=== PATIENT | male | born 2000 | race Asian ===

== ENCOUNTER 2024-03-23 18:41 | Inpatient (IN) ==
--- NOTE | 2024-03-23 19:09 | Emergency Department Note ---
Impression & Plan Depression with suicidal ideation ED Provider Note NAME: DEVORA OLIVARES AGE: 24 SEX: M : 2000 ARRIVES VIA: Police [employer] INFORMANT: Patient, ED PROVIDER(S): Gal Urbina DO CHIEF COMPLAINT: Mental health evaluation HPI: The patient is a 24-year-old male who presented to the emergency department with police for an evaluation of mental health issues. The patient states that he was on his clinical rotations. 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 The patient made comments to people at his clinical rotation that he was very depressed and was thinking about hurting himself. The patient states he has no previous history of mental health issues. He has no previous admissions and takes no medications. He currently has no outpatient follow-up. He states that he was very depressed and this happens sometimes after he gets a bad wynne for his schooling. The patient denies having any medical issues. He has no nausea or vomiting. He denies having any chest pain or abdominal pain. At this time we did not have the opportunity to interview the police. The patient was interviewed with the mental health delegate as well. ROS: See above HPI for pertinent positives & negatives. A total of 10 systems reviewed and were otherwise negative. PAST MEDICAL HISTORY: See Below PAST SURGICAL HISTORY: See Below FAMILY HISTORY: See Below SOCIAL HISTORY: See Below HOME MEDICATIONS: See Below ALLERGIES: See Below VITALS: See Below PHYSICAL EXAMINATION: GENERAL: Patient is awake alert in no acute distress patient is resting comfortably and showing no signs of anxiety EYES: The conjunctivae are clear. The pupils are round and reactive. EARS, NOSE, MOUTH AND THROAT: The nose is without any evidence of any deformity. Mucous membranes are moist. Tongue is midline. NECK: The neck is nontender and supple. RESPIRATORY: Normal respiratory effort is noted there is no evidence of wheezing rhonchi or rales CARDIOVASCULAR: Regular rate and rhythm noted there no murmurs rubs or gallops normal S1 normal S2. GASTROINTESTINAL: The abdomen is soft. Abdomen is nontender. MUSCULOSKELETAL/EXTREMITIES: There is no evidence of gross deformity full range of motion is noted in the hips and shoulders. SKIN: There is no obvious evidence of any rash. There are no petechiae, pallor or cyanosis noted. NEUROLOGIC: Patient is awake alert and oriented x3 strength is symmetric patellar reflexes are 2+ bilaterally PSYCH: The patient makes poor eye contact. His affect is very flat. The patient continues to admit to suicidal ideation but no active plan at this time. MEDICAL DECISION MAKING: The patient is a 24-year-old male who presented to the emergency department for an evaluation of mental health issues. The patient did arrive with police but very little history is obtained from police initially. The patient does offer that he was having suicidal ideation and depression. It does not sound that he has much outpatient follow-up arranged and is not currently taking any medications. The patient was medically cleared in the emergency department. He was reevaluated by the mental health immigration case worker. He was felt to be a good candidate for inpatient management and was evaluated by the delegate from [facility] [address]. Ultimately the patient was felt to be a good candidate for management in our unit. 201 paperwork was filled out by myself. Triage Nursing notes reviewed. Prior medical records reviewed Vital Signs: reviewed and remarkable for no significant abnormalities Differential diagnosis: Mood disorder, infection, hypoglycemia, electrolyte abnormalities, cardiac sources, intracerebral event, toxicologic, trauma, neurologic, as well as other pathologies. ER treatment provided: See below Diagnostics interpreted by me: ECG: none Laboratory studies: As stated above and show below. Imaging studies: See below. Radiographic imaging was reviewed by myself Consultation(s): I discussed this case with the emergency departmental health immigration case worker. Past Med/Surg History Problem List (Updated 03/23/24 @ 23:55 by Gal Urbina DO) Depression with suicidal ideation (Acute) Social History Smoking Status: Never smoker Feels Safe at Home: Yes Gender Identity: Male Allergies Allergies Allergy/AdvReac Type Severity Reaction Status Date / Time No Known Allergies Allergy Unverified 03/23/24 20:28 Home Meds Home Medications Medication Instructions Recorded Confirmed No Known Home Medications 03/23/24 03/23/24 Results & Data (ED) Vital Signs Vital Signs - 24 hr 03/23/24 18:27 Temperature 36.6 C Temperature Source Oral Pulse Rate 74 Pulse Rhythm Regular Pulse Strength Normal Respiratory Rate 20 Respiratory Effort / Characteristics Non-Labored Spontaneous Respiratory Depth Normal Respiratory Pattern Regular Blood Pressure 135/94 Blood Pressure Mean 107 Blood Pressure Position Lying Pulse Oximetry 97 Oxygen Delivery Method Room Air Sepsis Recent Fever Within 48 Hours No Sepsis New/Unexplained Change in Mental Status No Sepsis Action Taken by Nursing No Action Required Home Medications Current Medication List: was personally reviewed by me Laboratory Data Attestation: I reviewed the patient's lab results. 03/23/24 20:00 03/23/24 20:00 Lab Results 03/23/24 03/23/24 Range/Units 18:55 20:00 WBC 8.98 (4.8-10.8) K/ul RBC 5.48 (4.70-6.10) M/uL Hgb 15.1 (14.0-18.0) g/dl Hct 46.2 (42.0-52.0) % MCV 84.3 (80.0-100.0) fL MCH 27.6 (25.0-34.0) pg MCHC 32.7 (32.0-36.0) g/dL RDW Std Deviation 41.8 (36.4-46.3) fL RDW Coeff of Eva 13.5 (11.5-14.5) % Plt Count 386 (130-400) K/uL MPV 9.4 (9.4-12.4) fL Immature Gran % (Auto) 0.4 % Neut % (Auto) 64.4 % Lymph % (Auto) 28.0 % [place] % (Auto) 5.8 % Eos % (Auto) 1.1 % Baso % (Auto) 0.3 % Neut # (Auto) 5.78 (1.40-6.50) K/uL Lymph # (Auto) 2.51 (1.20-3.40) K/uL [place] # (Auto) 0.52 (0.11-0.59) K/uL Eos # (Auto) 0.10 (0.00-0.50) K/uL Baso # (Auto) 0.03 (0.00-0.20) K/uL Immature Gran # (Auto) 0.04 (0.01-0.20) K/uL Sodium 139 (136-145) mmol/L Potassium 4.1 (3.5-5.1) mmol/L Chloride 104 (98-107) mmol/L Carbon Dioxide 28 (21-32) mmol/L Anion Gap 7 (3-11) BUN 9 (6-23) mg/dl Creatinine 0.93 (0.6-1.4) mg/dl Est Cr Clr Drug Dosing 143.5 ml/min eGFR 119.06 BUN/Creatinine Ratio 9.7 L (10-20) Glucose 88 (70-99(Fasting)) mg/dl Calcium 9.3 (8.6-10.3) mg/dl Total Bilirubin 0.3 (0.2-1.0) mg/dl AST 25 (13-39) U/L ALT 43 (7-52) U/L Alkaline Phosphatase 73 (34-104) U/L Total Protein 8.2 (6.0-8.3) gm/dl Albumin 4.7 (3.4-5.0) gm/dl Globulin 3.5 (2.5-4.0) gm/dl Albumin/Globulin Ratio 1.3 (0.9-2) TSH 0.787 (0.300-4.500) uIu/ml Urine Color Yellow Urine Appearance Clear (Clear) Urine pH 5.5 (4.5-7.5) Ur Specific [place] 1.022 (1.000-1.030) Urine Protein Negative (Negative) Urine Glucose (UA) Negative (Negative) Urine Ketones Negative (Negative) Urine Blood Negative (Negative) Urine Nitrite Negative (Negative) Urine Bilirubin Negative (Negative) Urine Urobilinogen Negative (Negative) Ur Leukocyte Esterase Negative (Negative) Salicylates < 3.0 L (3.0-30) mg/dl Urine Opiates Screen Neg (Neg) Ur Methadone, Qual Neg (Neg) Urine Fentanyl Screen Neg (Neg) Acetaminophen < 3 L (10-30) ug/ml Urine Barbiturates Neg (Neg) Ur Phencyclidine (PCP) Neg (Neg) U Amphetamin/Meth Scrn Neg (Neg) MDMA (Ecstasy) Screen Neg (Neg) U Benzodiazepines Scrn Neg (Neg) Ur Cocaine Metabolite Neg (Neg) U Marijuana (THC) Screen Neg (Neg) Ethyl Alcohol mg/dL < 10.0 (<10.0) mg/dl SARS-CoV-2, RNA, NAAT NEGATIVE (NEGATIVE) Discharge Plan Visit Data Chief Complaint: Mental Health Evaluation Stated Complaint: 201 ED Provider: Gal Urbina Discharge Problem: Depression with suicidal ideation Patient Disposition: Transfer Behavioral Health Fac Forms Stand Alone Forms: My [facility], Suicide Prevention Resources Prescriptions Prescriptions: No Action No Known Home Medications Referrals Referrals: PCP,NO [Primary Care Provider] -
[2024-03-23 19:18] LABS: Appearance Urine Clear (Clear); Bilirubin Urine Negative (Negative); Blood Urine Negative (Negative); Color Urine Yellow; Glucose Urine UA Negative (Negative); Ketones Urine Negative (Negative); Leukocyte Esterase Urine Negative (Negative); Nitrite Urine Negative (Negative); Protein Urine Negative (Negative); Specific Gravity Urine 1.022 (1.000-1.030); Urobilinogen Urine Negative (Negative); pH Urine 5.5 (4.5-7.5)
[2024-03-23 20:08] LABS: Amphetamines+Metham, Urine Neg (Neg); Barbiturates, Urine Neg (Neg); Benzodiazepine, Urine Neg (Neg); Cocaine, Urine Neg (Neg); Fentanyl, Urine Neg (Neg); MDMA (Ecstacy), Urine Neg (Neg); Marijuana, Urine Neg (Neg); Methadone, Urine Neg (Neg); Opiate, Urine Neg (Neg); Phencyclidine, Urine Neg (Neg)
[2024-03-23 20:30] LABS: Basophils # (auto) 0.03 K/uL (0.00-0.20); Basophils % (auto) 0.3 %; Eosinophils % (auto) 1.1 %; Hematocrit (blood only) 46.2 % (42.0-52.0); Hemoglobin 15.1 g/dl (14.0-18.0); Immature Granulocytes # (auto) 0.04 K/uL (0.01-0.20); Immature Granulocytes % (auto) 0.4 %; Lymphocytes # (auto) 2.51 K/uL (1.20-3.40); Mean Corpuscular Hemoglobin 27.6 pg (25.0-34.0); Mean Corpuscular Hgb Conc 32.7 g/dL (32.0-36.0); Mean Corpuscular Volume 84.3 fL (80.0-100.0); Mean Platelet Volume 9.4 fL (9.4-12.4); Monocytes # (auto) 0.52 K/uL (0.11-0.59); Monocytes % (auto) 5.8 %; Neutrophils # (auto) 5.78 K/uL (1.40-6.50); Neutrophils % (auto) 64.4 %; Platelet Count 386 K/uL (130-400); RDW Coefficient of Variation 13.5 % (11.5-14.5); RDW Standard Deviation 41.8 fL (36.4-46.3); Red Blood Count 5.48 M/uL (4.70-6.10); White Blood Count 8.98 K/ul (4.8-10.8)
[2024-03-23 20:48] LABS: Albumin Globulin Ratio 1.3 (0.9-2); Albumin Level 4.7 gm/dl (3.4-5.0); BUN Creatinine Ratio 9.7 (10-20); Bilirubin,Total 0.3 mg/dl (0.2-1.0); Calcium 9.3 mg/dl (8.6-10.3); Creatinine Clr Calc Pharmacy 143.5 ml/min; Globulin 3.5 gm/dl (2.5-4.0); Potassium 4.1 mmol/L (3.5-5.1); Total Protein 8.2 gm/dl (6.0-8.3)
[2024-03-23 21:03] LABS: Thyroid Stimulating Hormone 0.787 uIu/ml (0.300-4.500)
[2024-03-23 21:16] LABS: Acetaminophen < 3 ug/ml (10-30); Salicylate < 3.0 mg/dl (3.0-30)
[2024-03-24] MEDS ORDERED: ACETAMINOPHEN 325 MG TAB PO PRN ×2 (00:03→00:13)
[2024-03-24] MEDS ORDERED: ALUMINUM/MAGNESIUM SUSP 30 ML UDC PO PRN ×2 (00:03→00:13)
[2024-03-24] MEDS ORDERED: SODIUM CHLORIDE 0.65% NA SOLN 45 ML (OCEAN) PRN ×2 (00:03→00:13)
[2024-03-24] MEDS ORDERED: BISMUTH SUBSALICYLATE 262 MG CHEW PO PRN ×2 (00:03→00:13)
[2024-03-24] MEDS ORDERED: MAGNESIUM HYDROXIDE SUSP 30 ML UDC PO PRN ×2 (00:03→00:13)
[2024-03-24] MEDS ORDERED: hydrOXYzine HCl 25 MG TAB PO PRN ×4 (00:03→00:13)
--- NOTE | 2024-03-24 12:00 | History & Physical ---
Date of Service March 24, 2024 Impression / Recommendations Impression DEVORA OLIVARES is a 24-year-old single [place] M who currently lives in [facility] dorms with roommate, has no past psychiatric history, and was admitted on 03/23/24 23:51 on a 201 voluntary commitment for suicidal ideation. Presentation consistent with generalized anxiety disorder and social anxiety disorder. Does not meet full criteria for a major depressive episode however there is concern given significant loss of self-esteem. Appears suicidal ideation is in the context of anxious ruminations related to inadequacyappears to be causing significant dysfunction with frequent episodes weekly and associated dread and physical tiredness. He would benefit from engagement in cognitive behavioral therapy to address underlying automatic thoughts, self- esteem issues, and challenge negative thought patterns. Additionaly acceptance and commitment therapy could foster self compassion and dialectical behavioral therapy could promote improved emotional regulation. May benefit from intensive outpatient program. Plan to start sertraline for anxiety and mood; medication side effects and adverse effects discussed with the patient and agreeable. No acute safety concerns presented at this time. Overall, I spent a total of 70 minutes with this case including review of chart records, nursing report, review of lab work, direct evaluation of the patient at bedside, counseling the patient, multidisciplinary team meeting, orders, and documentation in the electronic health record. (1) Poor self esteem: (2) Generalized anxiety disorder: (3) Social anxiety disorder: Plan 03/24/2024:The patient was admitted to the [facility] ([facility] mental health unit) on q15 min checks (behavioral with suicide precautions) for safety. The patient will participate in group, recreational, and milieu therapies and will be offered additional individual and family sessions as clinically appropriate. Start sertraline 25 mg daily Safety plan Inventory Assets Strengths: Independent, future oriented Needs: Assertiveness, support seeking Suicide Risk Level Suicide Risk Level: Moderate (q15 min suicide checks) Risk Factors Assessment Male: Yes : No Do You Have Access To A Gun?: No Health Problems: No Mental Health Diagnoses: Yes Substance Use Disorders: No Previous Attempt: No Family History of Suicide: No Previous Psychiatric Hospitalization: No Hopelessness: No Protective Factors Assessment Catholic Beliefs: Yes : No Responsible for Young Children: No Employed: No Stable Relationships: Yes Supportive Family: Yes Good Rapport with Provider: Yes Absence of Any Risk Factors Above: No Psychiatric History Identifying Data DEVORA OLIVARES is a 24-year-old single [place] M who currently lives in [facility] dorms with roommate, has no past psychiatric history, and was admitted on 03/23/24 23:51 on a 201 voluntary commitment for suicidal ideation. 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 He was unable to find a brachial pulse then felt feelings of inadequacy and it spiraled into suicidal thoughts which he verbalized openly. Brought in by police and reported he would come in voluntarily. He reports this occurs 1-2 times a week and would often "shut down" and feel tired. Associated feelings of "dread". It would take him 5 to 30 minutes to get back to normal. He denies ever taking steps towards committing suicide in the past. He denies current suicidal ideation. He denies history of suicide attempts. He reports these episodes usually occur when he is doing poorly on tests or in academics and is associated with self judgment. He reports goals of having a more positive outlook and improving his self- esteem. He endorses difficulty falling asleep but is able to stay asleep. Fair energy, concentration, interest in activities (video games), lack of guilt. Complains of multiple worries including financial, the economy, his future. Reports this has been happening since high school he has had a "uneasiness about the world". He is often "normally negative" and cause him statements like "fat bastard." Says he is deeply introverted and often isolates. He denies hypervigilance, flashbacks, or distressing dreams. He denies a history of episodes of decreased need for sleep with elevated mood, energy, goal directed activity. He denies history of auditory or visual hallucinations. Denies history of drug or alcohol problems and reports social drinking every 2 to 3 months. Reports good childhood with both parents. Denies physical, sexual, emotional abuse. Has an older brother and younger sister and has a good relationship with them. Reports parents place high expectations on him. Social history: Patient is originally from [place] [id number] hour outside of [place]. Recently his parents moved to [place] and he helped him move there. 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 Denies access to firearms. Single. No past counselor or psychiatrist. Open to medication management. Past Psychiatric History Current Psychiatric Diagnosis: Depressive Disorder Not Otherwise Specified Do You Have Access To A Gun?: No History of Previous Suicide Attempt: No Allergies Allergy/AdvReac Type Severity Reaction Status Date / Time No Known Allergies Allergy Unverified 03/23/24 20:28 Home Medications Medication Instructions Recorded Confirmed Type No Known Home Medications 03/23/24 03/23/24 History Family History Family History of: Depression and Suicide Attempts Family Mental Health History Comment: reports that sister attempted but couldn't give details Alcohol History Hx of Alcohol Use Over the Past 12 Months: Yes (very infrequently) AUDIT Total Score: 1 Smoking Use Have You Smoked or Used Tobacco Products in the Last 30 Days: No Smoking Status: Never smoker Smoking packs per day: 0 Substance History Hx of Prescription Med Misuse Over the Past 12 Months: No Hx of Over the Counter Med Misuse Over the Past 12 Months: No Hx of Inhalent Misuse Over the Past 12 Months: No Hx of Organic Substance Use Over the Past 12 Months: No Hx of Illegal Substances/Street Drug Use Over Past 12 Months: No Problems as a Result of Past Substance Use: None Identified Problems as a Result of Past Substance Use Comments: NA Personal History Living Arrangements: [facility] Highest Grade Completed: Some College Marital Status: Single Number Of Children: 0 Beliefs That Will Affect Care: None Patient History Social History Smoking Status: Never smoker Preferred Language: French Communication Ability: Effective Store Manager Required: No Beliefs That Will Affect Care: None Feels Safe at Home: Yes Gender Identity: Male Assistive Devices: None Physical Exam Mental Examination: Appropriate appearance Eye Contact: Sporadic Contact Motor Behavior: Restless Speech: Soft Mood: Anxious Affect: Congruent and Nervous Thought Process: Intact and Linear Thought Content: Poverty of Content (guarded) Hallucinations: None Insight: Fair (to limited) Judgement: Poor (to limited) Vital Signs (Past 24 Hours): Last Vital Signs Temp 36.5 C 03/24/24 11:06 Pulse 69 03/24/24 11:06 Resp 16 03/24/24 11:06 BP 111/74 03/24/24 11:06 Pulse Ox 98 03/23/24 19:34 O2 Del Method Room Air 03/23/24 19:34 Exam Statement: A physical exam was performed in the ED for the purposes of medical clearance. I accept that physical as correct and adequate for the purposes of the inpatient physical exam. Results & Data ([facility]) Laboratory Results Laboratory Results - last 24 hr 03/23/24 03/23/24 18:55 20:00 WBC 8.98 RBC 5.48 Hgb 15.1 Hct 46.2 MCV 84.3 MCH 27.6 MCHC 32.7 RDW Std Deviation 41.8 RDW Coeff of Eva 13.5 Plt Count 386 MPV 9.4 Immature Gran % (Auto) 0.4 Neut % (Auto) 64.4 Lymph % (Auto) 28.0 [place] % (Auto) 5.8 Eos % (Auto) 1.1 Baso % (Auto) 0.3 Neut # (Auto) 5.78 Lymph # (Auto) 2.51 [place] # (Auto) 0.52 Eos # (Auto) 0.10 Baso # (Auto) 0.03 Immature Gran # (Auto) 0.04 Sodium 139 Potassium 4.1 Chloride 104 Carbon Dioxide 28 Anion Gap 7 BUN 9 Creatinine 0.93 Est Cr Clr Drug Dosing 143.5 eGFR 119.06 BUN/Creatinine Ratio 9.7 L Glucose 88 Calcium 9.3 Total Bilirubin 0.3 AST 25 ALT 43 Alkaline Phosphatase 73 Total Protein 8.2 Albumin 4.7 Globulin 3.5 Albumin/Globulin Ratio 1.3 TSH 0.787 Urine Color Yellow Urine Appearance Clear Urine pH 5.5 Ur Specific [place] 1.022 Urine Protein Negative Urine Glucose (UA) Negative Urine Ketones Negative Urine Blood Negative Urine Nitrite Negative Urine Bilirubin Negative Urine Urobilinogen Negative Ur Leukocyte Esterase Negative Salicylates < 3.0 L Urine Opiates Screen Neg Ur Methadone, Qual Neg Urine Fentanyl Screen Neg Acetaminophen < 3 L Urine Barbiturates Neg Ur Phencyclidine (PCP) Neg U Amphetamin/Meth Scrn Neg MDMA (Ecstasy) Screen Neg U Benzodiazepines Scrn Neg Ur Cocaine Metabolite Neg U Marijuana (THC) Screen Neg Ethyl Alcohol mg/dL < 10.0 SARS-CoV-2, RNA, NAAT NEGATIVE Current Inpatient Medications Current Inpatient Medications: Current Inpatient Medications Acetaminophen (Acetaminophen 325 Mg Tab) 650 mg PO Q4H PRN PRN Reason: Headache or Minor Fever Stop: 04/23/24 00:12 Al Hydrox/Mg Hydrox/Simethicone (Aluminum/Magnesium Susp 30 Ml Udc) 30 ml PO Q4H PRN PRN Reason: GI Upset Stop: 04/23/24 00:12 Bismuth Subsalicylate (Bismuth Subsalicylate 262 Mg Chew) 2 tab PO Q30M PRN PRN Reason: Loose Stool/Diarrhea Stop: 04/23/24 00:12 Hydroxyzine HCl (Hydroxyzine Hcl 25 Mg Tab) 50 mg PO HSZ PRN PRN Reason: Insomnia Stop: 04/23/24 00:12 Hydroxyzine HCl (Hydroxyzine Hcl 25 Mg Tab) 25 mg PO Q4H PRN PRN Reason: Anxiety Stop: 04/23/24 00:12 Magnesium Hydroxide (Magnesium Hydroxide Susp 30 Ml Udc) 30 ml PO DAILY PRN PRN Reason: Constipation Stop: 04/23/24 00:12 Sertraline HCl (Sertraline Hcl 50 Mg Tablet) 25 mg PO QAM [id number] Stop: 04/23/24 10:59 Sodium Chloride (Sodium Chloride 0.65% Na Soln 45 Ml ([place])) 1 - 2 sprays NA PRN PRN PRN Reason: Nasal Dryness/Congestion Stop: 04/23/24 00:12
[2024-03-24] MEDS: SERTRALINE HCL 50 MG TABLET PO SCH (13:12)
[2024-03-25] MEDS: SERTRALINE HCL 50 MG TABLET PO SCH (09:00)
--- NOTE | 2024-03-25 11:40 | Discharge Summary ---
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 He was unable to find a brachial pulse then felt feelings of inadequacy and it spiraled into suicidal thoughts which he verbalized openly. Brought in by police and reported he would come in voluntarily. He reports this occurs 1-2 times a week and would often "shut down" and feel tired. Associated feelings of "dread". It would take him 5 to 30 minutes to get back to normal. He denies ever taking steps towards committing suicide in the past. He denies current suicidal ideation. He denies history of suicide attempts. He reports these episodes usually occur when he is doing poorly on tests or in academics and is associated with self judgment. He reports goals of having a more positive outlook and improving his self- esteem. He endorses difficulty falling asleep but is able to stay asleep. Fair energy, concentration, interest in activities (video games), lack of guilt. Complains of multiple worries including financial, the economy, his future. Reports this has been happening since high school he has had a "uneasiness about the world". He is often "normally negative" and cause him statements like "fat bastard." Says he is deeply introverted and often isolates. He denies hypervigilance, flashbacks, or distressing dreams. He denies a history of episodes of decreased need for sleep with elevated mood, energy, goal directed activity. He denies history of auditory or visual hallucinations. Denies history of drug or alcohol problems and reports social drinking every 2 to 3 months. Reports good childhood with both parents. Denies physical, sexual, emotional abuse. Has an older brother and younger sister and has a good relationship with them. Reports parents place high expectations on him. Social history: Patient is originally from [place] outside of [place]. Recently his parents moved to [place] and he helped him move there. 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 Denies access to firearms. Single. No past counselor or psychiatrist. Open to medication management. Physical Exam Mental Examination Appropriate appearance Appearance: Well Groomed Eye Contact: Sporadic Contact Motor Behavior: Restless Speech: Soft Mood: Anxious Affect: Congruent and Nervous Thought Process: Intact and Linear Thought Content: Poverty of Content (guarded) Hallucinations: None Insight: Fair (to limited) Judgement: Poor (to limited) Vital Signs (Past 24 Hours) Last Vital Signs Temp 37 C 03/25/24 11:16 Pulse 69 03/25/24 11:16 Resp 18 03/25/24 11:16 BP 116/75 03/25/24 11:16 Pulse Ox 97 03/25/24 11:16 O2 Del Method Room Air 03/25/24 06:05 Principal Diagnosis Generalized Anxiety Disorder Psychiatric Data See daily stay summary. In short, safety was maintained and the patient was cooperative with care. Medication changes included starting Sertraline 50mg daily and they tolerated this well. A family session was not held (pt refused) and safety plan was completed prior to discharge. Pt would benefit from IOP for distress tolerance skills, CBT, and acceptance and commitment therapy; completed intake. Pt was counseled about automatic thoughts. Day of Discharge Assessment Today the patient voices readiness for discharge. They note improvement in mood and deny thoughts to harm self or others. Thoughts remain organized and they are improved from admission. There is no evidence of psychosis. They agree to take mediations as prescribed and keep follow-up appointments. They are stable for discharge to outpatient level of care. 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 Risk Factors Assessment Male: Yes : No Do You Have Access To A Gun?: No Health Problems: No Mental Health Diagnoses: Yes Substance Use Disorders: No Previous Attempt: No Family History of Suicide: No Previous Psychiatric Hospitalization: No Hopelessness: No Protective Factors Assessment Ep[employer]alian Beliefs: Yes : No Responsible for Young Children: No Employed: No Stable Relationships: Yes Supportive Family: Yes Good Rapport with Provider: Yes Absence of Any Risk Factors Above: No Discharge Data Lab Results 03/23/24 03/23/24 18:55 20:00 WBC 8.98 RBC 5.48 Hgb 15.1 Hct 46.2 MCV 84.3 MCH 27.6 MCHC 32.7 RDW Std Deviation 41.8 RDW Coeff of Eva 13.5 Plt Count 386 MPV 9.4 Immature Gran % (Auto) 0.4 Neut % (Auto) 64.4 Lymph % (Auto) 28.0 [place] % (Auto) 5.8 Eos % (Auto) 1.1 Baso % (Auto) 0.3 Neut # (Auto) 5.78 Lymph # (Auto) 2.51 [place] # (Auto) 0.52 Eos # (Auto) 0.10 Baso # (Auto) 0.03 Immature Gran # (Auto) 0.04 Sodium 139 Potassium 4.1 Chloride 104 Carbon Dioxide 28 Anion Gap 7 BUN 9 Creatinine 0.93 Est Cr Clr Drug Dosing 143.5 eGFR 119.06 BUN/Creatinine Ratio 9.7 L Glucose 88 Calcium 9.3 Total Bilirubin 0.3 AST 25 ALT 43 Alkaline Phosphatase 73 Total Protein 8.2 Albumin 4.7 Globulin 3.5 Albumin/Globulin Ratio 1.3 TSH 0.787 Urine Color Yellow Urine Appearance Clear Urine pH 5.5 Ur Specific [place] 1.022 Urine Protein Negative Urine Glucose (UA) Negative Urine Ketones Negative Urine Blood Negative Urine Nitrite Negative Urine Bilirubin Negative Urine Urobilinogen Negative Ur Leukocyte Esterase Negative Salicylates < 3.0 L Urine Opiates Screen Neg Ur Methadone, Qual Neg Urine Fentanyl Screen Neg Acetaminophen < 3 L Urine Barbiturates Neg Ur Phencyclidine (PCP) Neg U Amphetamin/Meth Scrn Neg MDMA (Ecstasy) Screen Neg U Benzodiazepines Scrn Neg Ur Cocaine Metabolite Neg U Marijuana (THC) Screen Neg Ethyl Alcohol mg/dL < 10.0 SARS-CoV-2, RNA, NAAT NEGATIVE Hospital Course (1) Poor self esteem: (2) Generalized anxiety disorder: (3) Social anxiety disorder: (4) Depression: Plan 03/25/25: Increase Sertraline 50mg daily 03/24/2024:The patient was admitted to the [facility] ([facility] unit) on q15 min checks (behavioral with suicide precautions) for safety. The patient will participate in group, recreational, and milieu therapies and will be offered additional individual and family sessions as clinically appropriate. Start sertraline 25 mg daily Safety plan Mental Health & Subst Abuse Tx Psychiatrist Name of Psychiatrist: [facility] Psychiatrist's Psychiatric Appointment Comment: Meds will be managed through [facility] after intake is completed Psychiatrist Release of Information: Obtained, Reviewed and Signed Therapist Name of Therapist: [facility] Therapist's Date of Therapist Appointment: 03/28/24 - Thursday Time of Therapist Appointment: 11AM Therapy Appointment Comment: Virtual appts Therapist Release of Information: Obtained, Reviewed and Signed County Sheriff Name of County Sheriff: None Post Discharge Appointments Primary Care Physician Name Of Family Doctor/PCP: None Home Health Services Home Health Services:: None Contact Information Discharge Discharge Address: [address] [place] [id number] Discharge Plan Discharge Items Patient Disposition: Home - Self-Care Reason For Visit: SI Discharge Diagnosis: Poor self esteem: Major Depressive Disorder, recurrent, moderate Generalized anxiety disorder: Social anxiety disorder: Condition on Discharge: Fair Activity: Resume your previous activity Non-emergency contact: Primary Care Provider and Therapist Call non-emergency contact if: you have any medication questions and your symptoms worsen Follow-up/Referrals: PCP,NO [Primary Care Provider] - Diet: Regular Addtl Attending Provider Instructions: -Continue Sertraline 50mg daily -Follow-up with counselling and engage in cognitive behavioral therapy -Provide daily self affirmation, work on positive coping skills when stressed Pending Studies at Discharge: No Stand-Alone Forms: [employer], Smoking Cessation Medications and DC Order Prescriptions: New sertraline 50 mg Tablet 50 mg PO QAM Qty: 30 0RF Discharge Orders: Discharge Order (Routine); Ordered 03/25/24 Ordered By: Tej Tinsley Admission Data Admit Date/Time: 03/23/24 23:51 Attending Provider: Tej Tinsley Admit Provider: Tej Tinsley Primary Care Provider: PCP,NO Other Interventions: Discharge Summary Assessment (RN) Last Done: 03/25/24 11:16 PSY Interdisciplinary Discharge Planning Last Done: 03/25/24 11:16 [place] [address] D/C day mgmt 30 min or < Patient Type Established History Expanded Problem Focused Exam Expanded Problem Focused Medical Decision Making Moderate Complexity Diagnoses Poor self esteem R45.81 Generalized anxiety disorder F41.1 Social anxiety disorder F40.10 Depression F32.A
== END 2024-03-25 14:56 | disposition home or self-care (01) | DRG 880 ==
LOC: EDSEX → ED 18:41 → 3S 23:51 → ED 03-24
DX: F40.10 Social phobia, unspecified; Z11.52 Encounter for screening for COVID-19; R45.851 Suicidal ideations; F41.1 Generalized anxiety disorder; F32.A Depression, unspecified; R45.81 Low self-esteem